=== PATIENT | female | born 1980 | race Caucasian/White ===

== ENCOUNTER → 2020-11-05 | Outpatient (CLI) | payer BC, OTHER | LOC: LAB 14:12 | PROVIDERS: ATTEND Anesthesiology | DX: Z01.812 Encounter for preprocedural laboratory examination (principal); Z20.822 Contact with and (suspected) exposure to COVID-19 ==

== ENCOUNTER → 2021-01-02 | Outpatient (CLI) | payer BC, OTHER ==
[~2021-01-02] VITALS: Ht 180.3 cm; Wt 99.8 kg
[~2021-01-02] MED LIST: KEFLEX250 MG PO; PROTONIX 20 MG20 MG PO; XANAX 0.25 MG0.25 MG PO
[2021-01-02 09:27] VITALS: BP 150/81
[2021-01-02 10:07] LABS: HEMOGLOBIN 13.5 gm/dL (12.0-15.0); MCH 32.9 pg (26.0-34.0); MCHC 33.7 g/dL (28.0-37.0); MCV 97.6 fL (80.0-100.0); RBC 4.1 mil/uL (4.20-5.00); RDW 13.3 % (10.5-14.5); WBC 5.8 thou/uL (4.0-11.0)
[2021-01-02 10:17] LABS: CALCIUM 8.6 mg/dL (8.5-10.1); CREATININE 0.8 mg/dL (0.6-1.0); POTASSIUM 3.7 mmol/L (3.5-5.1)
[2021-01-02 10:19] LABS: APTT 24.6 Seconds (24.5-32.8); INR 0.91
[2021-01-02 10:51] VITALS: BP 146/89
[2021-01-02 11:16] VITALS: BP 151/88
== END | disposition home or self-care (01) ==
LOC: SPEC 08:44
PROVIDERS: Radiology Diagnostic Radiology; ATTEND Specialist
DX: L76.34 Postprocedural seroma of skin and subcutaneous tissue following other procedure (principal); L02.211 Cutaneous abscess of abdominal wall; F41.9 Anxiety disorder, unspecified; K21.9 Gastro-esophageal reflux disease without esophagitis; F17.210 Nicotine dependence, cigarettes, uncomplicated; E66.09 Other obesity due to excess calories; Z98.890 Other specified postprocedural states; Z79.899 Other long term (current) drug therapy